=== PATIENT | female | born 1955 | race Caucasian/White ===

== ENCOUNTER 2023-10-06 09:38 | Emergency (ER) | payer MEDICARE, SELFPAY ==
[2023-10-06 09:41] VITALS: BP 114/78; PULSE 81; RESP 16; TEMP 36.7; O2SAT 95; BMI 23.0
--- NOTE | 2023-10-06 10:10 | CRLHL7_ITS ---
For Patients: As a result of the Century Cures Act, medical imaging exams and procedure reports are released immediately into your electronic medical record. You may view this report before your referring provider. If you have questions, please contact your health care provider. INDICATION: Cough. TECHNIQUE: Chest 2 views. COMPARISON: Chest CT and radiographs from 10/16/2013. FINDINGS: Normal cardiomediastinal silhouette and pulmonary vasculature. Lungs are well inflated. Nodular airspace opacity in the right lung base is new compared to prior radiographs. No additional consolidation. No pleural effusion or pneumothorax. No acute osseous abnormality. Unchanged left axillary surgical clips. IMPRESSION: Nodular opacity in the right lower lung may be artifactual from overlapping structures; however, findings are new compared to prior radiographs from 2013. Noncontrast chest CT is recommended for further evaluation. Dictated by Lyndsay Bolton MD @ 10/06/2023 10:43:55 AM (Electronically Signed)
[2023-10-06 10:53] LABS: Hematocrit 41.4 % (33.0-51.0); Hemoglobin* 13.4 gm/dL (12.0-16.0); Lymphocytes Percent Auto 23.6 % (20-44); Mean Corpuscular HGB Conc 32 gm/dL (32-36); Mean Corpuscular Hemoglobin 32 pg (26-34); Mean Corpuscular Volume 100 fL (80-100); Monocytes Percent Auto 9.6 % (0.0-11.0); Neutrophils Percent Auto 65.8 % (42.0-72.0); Platelet Count* 241 K/uL (140-440); RDW Coefficient of Variation % 12.4 % (11.5-15.5); Red Blood Count 4.13 m/uL (4.00-5.20); White Blood Count* 2.92 K/uL (4.50-11.00)
[2023-10-06 10:58] LABS: Slide Review Reflex No
[2023-10-06 11:05] LABS: Troponin, Point-of-Care* 0.01 ng/ml (0.01-0.04)
[2023-10-06 11:12] LABS: Chloride* 102 mmol/L (96-114)
[2023-10-06 11:13] LABS: PCR FLU A Negative PCR FLU A (Negative); PCR FLU B Negative PCR FLU B (Negative); PCR RSV Negative PCR RSV (Negative)
[2023-10-06 11:13] LABS: Potassium* 4.8 mmol/L (3.6-5.1); Sodium* 141 mmol/L (135-149)
[2023-10-06 11:14] LABS: SARS PCR* Negative SARS-CoV-2 (Negative)
[2023-10-06 11:15] LABS: Creatinine* 0.8 mg/dL (0.5-1.5); Est. Creatinine Clearance* 45.78; Estimated Glomerular Filt Rate 81 ml/min
[2023-10-06 11:16] LABS: Alanine Aminotransferase* 19 U/L (4-35); Alkaline Phosphatase* 36 U/L (40-150); Anion Gap 9 mEq/L (7-15); Aspartate Amino Transferase* 24 U/L (12-35); Bilirubin Direct* 0.2 mg/dL (0.0-0.5); Bilirubin Total* 0.9 mg/dL (0.1-1.5); Blood Urea Nitrogen* 16 mg/dL (7-30); Calcium* 9.5 mg/dL (8.4-10.6); Carbon Dioxide* 30 mmol/L (20-32); Glucose* 97 mg/dL (60-115); Total Protein* 9.2 g/dL (6.0-8.3)
[2023-10-06 11:19] LABS: C Reactive Protein* 0.6 mg/dL (0.5-1.0)
[2023-10-06 11:29] LABS: NT Pro B Type NatriureticPept* 454 pg/mL
--- NOTE | 2023-10-06 11:32 | ED.GENADULT ---
HPI - General Adult General Date Seen: 10/06/23 Chief complaint: Shortness of Breath/Dyspnea Stated complaint: short of breath Time Seen by Provider: 10/06/23 10:00 Source: patient, RN notes reviewed and old records reviewed Mode of arrival: ambulatory Limitations: no limitations History of Present Illness HPI narrative: Patient is a 68-year-old woman with a remote history of breast cancer who presents for evaluation of a few different symptoms. 1., she says she has been feeling weak and shaky in sort of a nondescript way over the past few weeks. Then she has been feeling like her heart is beating in a strange way, she says she has checked her pulse, O2 sats, blood pressure 1 that is happening and everything is normal. Over the past week or so she says when she goes outside with her dog she finds it hard to breathe, she says she feels like she can not take a deep breath. She says that this happens inside sometimes with exertion as well although she was not able to come up with a circumstance indoors where she had actually noted these symptoms. She says generally she is pretty active but for the past 2 weeks has been less active because she is feeling weak and shaky. She has not had any fevers or chills, denies cough, shortness of breath, vomiting or diarrhea. She is eating and drinking okay. She has not had chest pain. No unusual leg pain or swelling, no history of DVT. She does have a history of pericarditis a number of years ago. Of note the shakiness and weakness, palpitations, and shortness of breath do not seem to be associated with one other. Related Data Home Medications Medication Instructions Recorded Confirmed No Known Home Medications 10/06/23 10/06/23 Allergies Allergy/AdvReac Type Severity Reaction Status Date / Time No Known Drug Allergies Allergy Verified 10/06/23 09:47 Review of Systems Status of ROS: Reports: 10 or more systems reviewed and unremarkable except as noted in History and below [facility] Social History Smoking Status: Never smoker How often do you have a drink containing alcohol: never AUDIT-C Alcohol total score: 0 Non-prescribed substance use: denies use Exam Narrative: Exam Narrative: Vital signs as noted above. In general, an alert, well-appearing patient. Head: Normocephalic, atraumatic. Eyes: Pupils are equal reactive. Extraocular movements are full. Conjunctivae are normal. ENT: Mucous membranes are moist. Neck: Supple without lymphadenopathy. Heart: Regular rate and rhythm. No murmur or rub. Lungs: Clear bilaterally. No increased work of breathing, crackles or wheezes. Abdomen: Soft and nontender. No organomegaly. Extremities: Well perfused. No edema. No calf tenderness. Pulses intact. Neurologic: Patient is alert and oriented to person and place. Speech is fluent. Face is symmetric. Moves all extremities equally. Affect: Normal. Skin: Warm and dry. Well perfused. Const: Vital Signs, click to edit/add: Vital Signs - 24 hr 10/06/23 09:41 Temperature 98.1 F Pulse Rate [Right Pulse Oximeter] 81 Respiratory Rate 16 Blood Pressure [Ri ght Upper Arm] 114/78 Pulse Oximetry 95 Oxygen Delivery Me thod Room Air Documenting provider has reviewed patient's vital signs: yes Course Course ED Course: Diagnostic considerations are fairly broad at this point include an infectious process such as COVID or influenza, metabolic derangement, anemia, pulmonary embolism, atypical angina, arrhythmia, month others. EKG pending. Labs thus far show a mildly depressed white blood cell count of 2.9, normal diff. Hemoglobin is 13.4. D-dimer is pending. Metabolic panel is normal, BUN is 16, creatinine 0.8, sodium 141 potassium 4.8. LFTs are normal. CRP is normal at 0.6. BNP is indeterminate at 4:54 a.m.. TSH is pending, COVID flu and RSV are negative. Initial point of care troponin is 0.01. She did have a chest x-ray, this is read as follows by Radiology FINDINGS: Normal cardiomediastinal silhouette and pulmonary vasculature. Lungs are well inflated. Nodular airspace opacity in the right lung base is new compared to prior radiographs. No additional consolidation. No pleural effusion or pneumothorax. No acute osseous abnormality. Unchanged left axillary surgical clips. IMPRESSION: Nodular opacity in the right lower lung may be artifactual from overlapping structures; however, findings are new compared to prior radiographs from 2014. Noncontrast chest CT is recommended for further evaluation. Plan will be to order a chest CT although I am waiting on the D-dimer to decide whether this should be a noncontrast CT or contrast CT to rule out pulmonary embolism. Labs were all normal including her D-dimer. As result, did a noncontrast CT which is read as follows by Radiology:FINDINGS: Lungs and pleura: The radiographic finding of concern corresponds to an anterior segment right lower lobe/lateral segment right middle lobe subpleural curvilinear pleural base band opacity (series 3; image 81) consistent with nonspecific minor fibrosis. 3 mm solid anterior segment right upper lobe nodule (3; 44). This finding was also present on the prior study of 10/16/2013 (3; 42 and 5; 77) and is therefore benign. 4 mm solid smoothly contoured sharply marginated triangular solid nodular opacity in the right lower lobe associated with the oblique fissure (5; 74), consistent with a benign intrapulmonary lymph node. Anterior left upper lobe subpleural reticular opacities consistent with radiation fibrosis present association with findings consistent with prior posttherapy changes involving the left breast and left axilla presumably related to a history of breast cancer. Please correlate with the patient`s clinical history. Anteromedial segment left lower lobe reticular opacities and subsegmental traction bronchiectasis also consistent with nonspecific minor fibrosis. Heart and vasculature: Heart size is normal. Thoracic aorta and pulmonary artery are normal in caliber. Lymph nodes/mediastinum: No mediastinal, hilar, or axillary adenopathy. Chest wall: No masses. Upper abdomen: Gallstone. Left extrarenal pelvis. Bones: L3-L4 disc degeneration. IMPRESSION: 1. The finding on the radiographic examination performed earlier today which prompted this study corresponds to nonspecific minor fibrosis in the anterolateral aspect of the right lung base involving the lateral segment of the right middle lobe and anterior segment of the right lower lobe as described above. 2. Incidental benign findings described above. I reviewed all of this with her. Etiology of her symptoms is unclear at this time, but I do not find any emergent or dangerous causes today. Would recommend primary care follow-up, may benefit from Holter or ZIO patch monitoring if the palpitations continue. She denies any history of asthma or COPD, has clear lungs without evidence of bronchospasm. EKG showed a sinus rhythm, ventricular rate of 61, normal ST segments and normal T-waves, QT corrected of 434 milliseconds, normal TN interval. No TN depression or ST elevation to suggest pericarditis. Return for worsening. Vital Signs Vital signs: Initial Vital Signs Temperature 98.1 F 10/06/23 09:41 Temperature Source Temporal Artery Scan 10/06/23 09:41 Pulse Rate 81 10/06/23 09:41 Respiratory Rate 16 10/06/23 09:41 Blood Pressure 114/78 10/06/23 09:41 Blood Pressure Mean 90 10/06/23 09:41 Blood Pressure Position Sitting 10/06/23 09:41 Pulse Oximetry 95 10/06/23 09:41 Oxygen Delivery Method Room Air 10/06/23 09:41 Vital Signs Temperature 98.1 F 10/06/23 09:41 Pulse Rate 81 10/06/23 09:41 Respiratory Rate 16 10/06/23 09:41 Blood Pressure 114/78 10/06/23 09:41 Pulse Oximetry 95 10/06/23 09:41 Oxygen Delivery Method Room Air 10/06/23 09:41 Temperature 98.1 F 10/06/23 09:41 Pulse Rate 81 10/06/23 09:41 Respiratory Rate 16 10/06/23 09:41 Blood Pressure 114/78 10/06/23 09:41 Pulse Oximetry 95 10/06/23 09:41 Oxygen Delivery Method Room Air 10/06/23 09:41 Medical Decision Making Lab Data Labs: Lab Results 10/06/23 10/06/23 10/06/23 Range/Units 10:10 10:19 10:46 WBC 2.92 L (4.50-11.00) K/uL RBC 4.13 (4.00-5.20) m/uL Hgb 13.4 (12.0-16.0) gm/dL Hct 41.4 (33.0-51.0) % MCV 100 (80-100) fL MCH 32 (26-34) pg MCHC 32 (32-36) gm/dL RDW Coeff of Jenae 12.4 (11.5-15.5) % Plt Count 241 (140-440) K/uL Neut % (Auto) 65.8 (42.0-72.0) % Lymph % (Auto) 23.6 (20-44) % Parmer % (Auto) 9.6 (0.0-11.0) % Eos % (Auto) 0.0 (0.0-7.0) % Baso % (Auto) 1.0 (0.0-3.0) % Neut # (Auto) 1.90 (1.7-7.0) K/uL Lymph # (Auto) 0.70 L (0.90-2.90) K/uL Parmer # (Auto) 0.30 (0.00-0.90) K/UL Eos # (Auto) 0.00 (0.00-0.50) K/uL Baso # (Auto) 0.00 (0.00-0.30) K/uL Abs Immat Gran (auto) 0.00 (0.00-0.30) K/uL Imm/Tot Granulo (auto) 0.0 % D-Dimer Quant (PE/DVT) 0.30 (0.00-0.50) ug/ml Sodium 141 (135-149) mmol/L Potassium 4.8 (3.6-5.1) mmol/L Chloride 102 (96-114) mmol/L Carbon Dioxide 30 (20-32) mmol/L Anion Gap 9 (7-15) mEq/L BUN 16 (7-30) mg/dL Creatinine 0.8 (0.5-1.5) mg/dL Estimated Creat Clear 45.78 Estimated GFR 81 ml/min Glucose 97 (60-115) mg/dL Calcium 9.5 (8.4-10.6) mg/dL Total Bilirubin 0.9 (0.1-1.5) mg/dL Direct Bilirubin 0.2 (0.0-0.5) mg/dL AST 24 (12-35) U/L ALT 19 (4-35) U/L Alkaline Phosphatase 36 L (40-150) U/L C-Reactive Protein 0.6 (0.5-1.0) mg/dL NT-Pro-B Natriuret Pep 454 pg/mL Total Protein 9.2 H (6.0-8.3) g/dL Albumin 5.0 (3.3-5.0) g/dL TSH 2.770 (0.270-4.200) uIU/mL SARS-CoV-2 (PCR) Negative SARS-CoV-2 (Negative) Influenza Type A (PCR) Negative PCR FLU A (Negative) Influenza Type B (PCR) Negative PCR FLU B (Negative) RSV (PCR) Negative PCR RSV (Negative) POC Troponin I 0.01 (0.01-0.04) ng/ml Discharge Plan Discharge Clinical Impression: Palpitations, Weakness Patient Disposition: Home, Self-Care Condition: Stable Instructions: Heart Palpitations (ED), Weakness (ED) Additional Instructions: Please follow-up for recheck in primary clinic in the next week or so. Discussed Holter monitoring for further evaluation of palpitations. All workup today, including chest CT was unremarkable. Prescriptions: No Action No Known Home Medications Follow Up/Referrals: Provider,Not a Local [Primary Care Provider] - Stand Alone Forms: [employer] Info Instructions
--- NOTE | 2023-10-06 12:00 | CRLHL7_ITS ---
For Patients: As a result of the Cures Act, medical imaging exams and procedure reports are released immediately into your electronic medical record. You may view this report before your referring provider. If you have questions, please contact your health care provider. INDICATION: Right basilar nodular airspace opacity, as described in the report of today`s radiographic examination of the chest. TECHNIQUE: CT chest without contrast. COMPARISON: 10/16/2013. Today`s radiographic examination of the chest which prompted this study. FINDINGS: Lungs and pleura: The radiographic finding of concern corresponds to an anterior segment right lower lobe/lateral segment right middle lobe subpleural curvilinear pleural base band opacity (series 3; image 81) consistent with nonspecific minor fibrosis. 3 mm solid anterior segment right upper lobe nodule (3; 44). This finding was also present on the prior study of 10/16/2013 (3; 42 and 5; 77) and is therefore benign. 4 mm solid smoothly contoured sharply marginated triangular solid nodular opacity in the right lower lobe associated with the oblique fissure (5; 74), consistent with a benign intrapulmonary lymph node. Anterior left upper lobe subpleural reticular opacities consistent with radiation fibrosis present association with findings consistent with prior posttherapy changes involving the left breast and left axilla presumably related to a history of breast cancer. Please correlate with the patient`s clinical history. Anteromedial segment left lower lobe reticular opacities and subsegmental traction bronchiectasis also consistent with nonspecific minor fibrosis. Heart and vasculature: Heart size is normal. Thoracic aorta and pulmonary artery are normal in caliber. Lymph nodes/mediastinum: No mediastinal, hilar, or axillary adenopathy. Chest wall: No masses. Upper abdomen: Gallstone. Left extrarenal pelvis. Bones: L3-L4 disc degeneration. IMPRESSION: 1. The finding on the radiographic examination performed earlier today which prompted this study corresponds to nonspecific minor fibrosis in the anterolateral aspect of the right lung base involving the lateral segment of the right middle lobe and anterior segment of the right lower lobe as described above. 2. Incidental benign findings described above. Please note that all CT scans at this facility use dose modulation, iterative reconstruction, and/or weight-based dosing when appropriate to reduce radiation dose to as low as reasonably achievable. Dictated by Jeovanny Rodas MD @ 10/06/2023 12:57:32 PM (Electronically Signed)
== END 2023-10-06 13:14 | disposition home or self-care (01) ==
PROVIDERS: Emergency Provider Emergency Medicine
DX: R00.2 Palpitations (principal); R53.1 Weakness
CPT/HCPCS: 36415; 71046; 71250; 80048; 80076; 83880; 84443; 84484; 85025; 85379; 86140; 87631; 93005; 99284; 99285